=== PATIENT | male | born 1980 | race Two or more races ===

== ENCOUNTER 2024-03-24 00:47 | Emergency (ER) | payer OTHER ==
[~2024-03-24] VITALS: Ht 175.3 cm; Wt 72.0 kg
[2024-03-24 01:14] VITALS: PULSE 73; RESP 18; O2SAT 98
[2024-03-24] MEDS: DexAMETHasone SOD PHOS 10MG/1ML VIAL INJ IV ONE (03:00)
[2024-03-24 03:06] VITALS: BP 119/75
[2024-03-24] MEDS ORDERED: EPIN0.1I11 IJ (03:09)
== END 2024-03-24 03:40 | disposition home or self-care (01) ==
LOC: EDBD 00:47 → ER 00:47
DX: T78.40XA Allergy, unspecified, initial encounter (principal); X58.XXXA Exposure to other specified factors, initial encounter
CPT/HCPCS: 99282; J1100